=== PATIENT | female | born 1960 | race African-American/Black ===

== ENCOUNTER 2017-07-16 18:07 | Inpatient (IN) | payer MEDICAID, OTHER ==
[~2017-07-16] VITALS: Ht 154.9 cm; Wt 61.9 kg
[~2017-07-16 18:07] MED LIST: ASPI-1158 PO; ATRO2DRO LEFTEYE; DILT90TA2 PO; DOCU-138 PO; GABA-531 PO; GENT5DRO5 EACHEYE; INSASP SUBCUT; LABE100T PO; LEVAQUIN PO
[2017-07-16 19:27] LABS: BASOPHILS % 0.8 % (0.0-2.0); EOSINOPHILS % 3.2 % (0.0-5.0); HEMATOCRIT. 23.2 % (36.0-48.0); HEMOGLOBIN. 7.2 g/dL (12.0-16.0); LYMPHOCYTES % 12.5 % (20.0-50.0); MEAN CORPUSCULAR VOLUME 90.6 fL (81.0-99.0); MEAN PLATELET VOLUME 8.8 fl (7.4-10.4); MONOCYTES % 8.7 % (2.0-8.0); NEUTROPHILS % 74.8 % (40.0-76.0); PLATELET 280 x1000/uL (130-400); RED BLOOD CELL COUNT 2.56 mill/uL (4.2-5.4); RED CELL DISTRIBUTION WIDTH 17.1 % (11.6-14.6)
[2017-07-16 19:31] LABS: PROTHROMBIN TIME 10.8 sec (9.4-11.6)
[2017-07-16 19:40] LABS: CARBON DIOXIDE 25 mEq/L (21-32); CHLORIDE 89 mEq/L (98-107); TROPONIN I < 0.02 ng/mL (0.00-0.04)
[2017-07-16] MEDS ORDERED: INSULIN REGULAR (HUMULIN R) 300UNITS/3ML IV ONE (20:15)
[2017-07-16] MEDS ORDERED: ACETAMINOPHEN 325MG TABLET PO PRN (20:15)
[2017-07-16 20:47] LABS: BG BASE EXCESS -0.6 mmol/L (-2.0-2.0); BG CARBOXYHEMOGLOBIN 1.1 % (0.5-1.5); BG DEOXYHEMOGLOBIN 5.7 % (0.0-5.0); BG FRACTION INSPIRED OXYGEN 40; BG HCO3 ACT 24.1 mmol/L (22.0-26.0); BG METHEMOGLOBIN 0.3 % (0.0-1.5); BG OXYGEN SATURATION 94.2 % (92.0-98.5); BG OXYHEMOGLOBIN 92.9 % (94.0-97.0); BG PCO2 39.6 mmHg (35.0-45.0); BG PH 7.402 (7.350-7.450); BG PO2 76.3 mmHg (75.0-100.0); BG SAMPLE SITE LEFT RADIAL; BG TOTAL HEMOGLOBIN 7.8 g/dL (12.0-18.0); BG VENT MODE MASK - TRACH
[2017-07-16] MEDS ORDERED: INSULIN REGULAR (HUMULIN R) 300UNITS/3ML SUBCUT ONE (21:45)
[2017-07-16 23:45] VITALS: BP 184/91
[2017-07-16] MEDS ORDERED: ACETAMINOPHEN 650MG SUPP PR PRN (23:45)
[2017-07-16] MEDS ORDERED: DOCUSATE SODIUM 100MG CAPSULE PO PRN (23:45)
[2017-07-16] MEDS ORDERED: NA PHOS,M-B/NA PHOS,DI-BA ENEMA 118ML PR PRN (23:45)
[2017-07-16] MEDS ORDERED: HYDROCODONE/ACETAMINOPHEN 5/325MG TABLET PO PRN (23:45)
[2017-07-16] MEDS ORDERED: MAGNESIUM/ALUMINUM HYDROXIDE/SIMETHICONE 30ML UDC PO PRN (23:45)
[2017-07-16] MEDS ORDERED: IPRATROPIUM/ALBUTEROL 0.5-3(2.5)MG/3ML NEB INH PRN (23:45)
[2017-07-16] MEDS ORDERED: GUAIFENESIN 200MG/10ML SUGAR FREE UDC PO PRN (23:45)
[2017-07-16] MEDS ORDERED: MORPHINE SULFATE 2 MG/ML CPJ (NOT FOR IM USE) IV PRN (23:45)
[2017-07-16] MEDS ORDERED: ACETAMINOPHEN 650MG/20.3ML UDC GT PRN (23:45)
[2017-07-16] MEDS ORDERED: ENOXAPARIN 40MG/0.4ML SYR SUBCUT SCH (23:45)
[2017-07-17] VITALS (41 sets, daily range): BP systolic 122–196; BP diastolic 66–110
[2017-07-17] MEDS ORDERED: DEXTROSE 50% WATER 50ML SYRINGE IV PRN
[2017-07-17] MEDS: GABAPENTIN 100MG CAPSULE PO SCH ×3 (00:49→16:06)
[2017-07-17] MEDS: DOCUSATE SODIUM 100MG CAPSULE PO SCH ×3 (00:49→16:06)
[2017-07-17] MEDS: ASPIRIN 81MG EC TABLET PO SCH ×2 (00:49→09:00)
[2017-07-17] MEDS: LABETALOL HCL 100MG TABLET PO SCH ×3 (00:49→21:23)
[2017-07-17] MEDS: IPRATROPIUM/ALBUTEROL 0.5-3(2.5)MG/3ML NEB INH SCH ×4 (01:30→21:17)
[2017-07-17] MEDS: GENTAMICIN 0.3% OPHTH DROPS 5ML EACHEYE SCH ×4 (02:07→16:06)
[2017-07-17] MEDS: ATROPINE SULFATE 1% OPHTH 2ML LEFTEYE SCH ×3 (02:08→16:06)
[2017-07-17] MEDS: DILTIAZEM HCL 90MG TABLET PO SCH ×3 (06:00→21:23)
[2017-07-17] MEDS: SODIUM CHLORIDE 0.9% INJ 3ML FLUSH IVF SCH ×3 (07:10→21:23)
[2017-07-17] MEDS: BLOOD SUGAR DIAGNOSTIC STRIP TEST SCH ×4 (07:16→21:23)
[2017-07-17] MEDS: INSULIN LISPRO 100 UNITS/ML SUBCUT SCH ×4 (07:20→21:24)
[2017-07-17] MEDS: DIPHENHYDRAMINE 50MG/ML VIAL IV PRN (07:20)
[2017-07-17 07:21] LABS: BASOPHILS % 1.2 % (0.0-2.0); EOSINOPHILS % 4.2 % (0.0-5.0); HEMATOCRIT. 23.1 % (36.0-48.0); HEMOGLOBIN. 7.4 g/dL (12.0-16.0); LYMPHOCYTES % 19.6 % (20.0-50.0); MEAN CORPUSCULAR HEMOGLOBIN 27.9 pg (28.0-32.0); MEAN CORPUSCULAR VOLUME 86.9 fL (81.0-99.0); MEAN PLATELET VOLUME 9.1 fl (7.4-10.4); MONOCYTES % 10.6 % (2.0-8.0); NEUTROPHILS % 64.4 % (40.0-76.0); PLATELET 246 x1000/uL (130-400); RED BLOOD CELL COUNT 2.66 mill/uL (4.2-5.4); RED CELL DISTRIBUTION WIDTH 17.1 % (11.6-14.6)
[2017-07-17 07:39] LABS: CARBON DIOXIDE 28 mEq/L (21-32); CHLORIDE 95 mEq/L (98-107); HDL CHOLESTEROL 64 mg/dL (40-59); LDL CHOLESTEROL 117 mg/dL (5-100)
[2017-07-17] MEDS ORDERED: ENOXAPARIN 30MG/0.3ML SYR SUBCUT SCH (09:00)
[2017-07-17] MEDS: CLONIDINE 0.1MG TABLET PO PRN (17:15)
[2017-07-17] MEDS: EPOETIN ALFA 4000UNITS/ML VIAL SUBCUT SCH (21:23)
[2017-07-17] MEDS: INSULIN DETEMIR UD 100 UNITS/ML SYR SUBCUT SCH (22:14)
[2017-07-18] VITALS (19 sets, daily range): BP systolic 122–181; BP diastolic 62–103
[2017-07-18] MEDS: IPRATROPIUM/ALBUTEROL 0.5-3(2.5)MG/3ML NEB INH SCH ×4 (02:51→21:03)
[2017-07-18] MEDS: DILTIAZEM HCL 90MG TABLET PO SCH ×3 (06:21→21:57)
[2017-07-18] MEDS: BLOOD SUGAR DIAGNOSTIC STRIP TEST SCH ×4 (06:21→21:57)
[2017-07-18] MEDS: SODIUM CHLORIDE 0.9% INJ 3ML FLUSH IVF SCH ×3 (06:21→21:57)
[2017-07-18 07:06] LABS: BASOPHILS % 0.9 % (0.0-2.0); EOSINOPHILS % 4.3 % (0.0-5.0); HEMATOCRIT. 27.5 % (36.0-48.0); LYMPHOCYTES % 19.2 % (20.0-50.0); MEAN CORPUSCULAR HEMOGLOBIN 27.9 pg (28.0-32.0); MEAN CORPUSCULAR VOLUME 85.5 fL (81.0-99.0); MEAN PLATELET VOLUME 8.3 fl (7.4-10.4); NEUTROPHILS % 65.6 % (40.0-76.0); PLATELET 274 x1000/uL (130-400); RED BLOOD CELL COUNT 3.21 mill/uL (4.2-5.4); RED CELL DISTRIBUTION WIDTH 18.1 % (11.6-14.6)
[2017-07-18 07:31] LABS: PHOSPHORUS 4.1 mg/dL (2.5-4.9)
[2017-07-18] MEDS: INSULIN LISPRO 100 UNITS/ML SUBCUT SCH ×4 (07:55→21:58)
[2017-07-18] MEDS: ASPIRIN 81MG EC TABLET PO SCH (08:37)
[2017-07-18] MEDS: DOCUSATE SODIUM 100MG CAPSULE PO SCH ×2 (08:37→17:47)
[2017-07-18] MEDS: GABAPENTIN 100MG CAPSULE PO SCH ×2 (08:37→17:47)
[2017-07-18] MEDS: ATROPINE SULFATE 1% OPHTH 2ML LEFTEYE SCH ×2 (08:37→17:47)
[2017-07-18] MEDS: GENTAMICIN 0.3% OPHTH DROPS 5ML EACHEYE SCH ×3 (08:37→17:48)
[2017-07-18] MEDS: LABETALOL HCL 100MG TABLET PO SCH ×2 (08:38→21:57)
[2017-07-18] MEDS: INSULIN DETEMIR UD 100 UNITS/ML SYR SUBCUT SCH ×2 (10:00→21:59)
[2017-07-18 10:37] LABS: BG BASE EXCESS -0.4 mmol/L (-2.0-2.0); BG CARBOXYHEMOGLOBIN 0.7 % (0.5-1.5); BG DEOXYHEMOGLOBIN 6.1 % (0.0-5.0); BG HCO3 ACT 24.3 mmol/L (22.0-26.0); BG METHEMOGLOBIN 0.1 % (0.0-1.5); BG OXYGEN SATURATION 93.9 % (92.0-98.5); BG OXYHEMOGLOBIN 93.1 % (94.0-97.0); BG PCO2 39.9 mmHg (35.0-45.0); BG PH 7.403 (7.350-7.450); BG PO2 73.9 mmHg (75.0-100.0); BG SAMPLE SITE RIGHT RADIAL; BG VENT MODE MASK - VENTI
[2017-07-18] MEDS: LOSARTAN POTASSIUM 50 MG TABLET PO SCH (11:16)
[2017-07-18] MEDS: BUDESONIDE 0.5MG/2ML NEB HHN SCH ×2 (14:59→21:04)
[2017-07-18] MEDS: ONDANSETRON HCL 4MG/2ML VIAL IV PRN ×2 (16:45→21:58)
[2017-07-18] MEDS ORDERED: MORPHINE SULFATE 4 MG/ML CPJ (NOT FOR IM USE) IV PRN (18:15)
[2017-07-18] MEDS: FAMOTIDINE 20MG/2ML VIAL IV SCH (21:57)
[2017-07-18] MEDS: ZOLPIDEM TARTRATE 5MG TABLET PO PRN (23:15)
[2017-07-18] MEDS: METOCLOPRAMIDE HCL 10MG/2ML VIAL IV SCH (23:16)
[2017-07-19] VITALS (22 sets, daily range): BP systolic 121–199; BP diastolic 71–102
[2017-07-19] MEDS: IPRATROPIUM/ALBUTEROL 0.5-3(2.5)MG/3ML NEB INH SCH ×4 (01:14→21:09)
[2017-07-19] MEDS: METOCLOPRAMIDE HCL 10MG/2ML VIAL IV SCH ×4 (05:52→23:42)
[2017-07-19] MEDS: SODIUM CHLORIDE 0.9% INJ 3ML FLUSH IVF SCH ×3 (05:53→22:19)
[2017-07-19] MEDS: DILTIAZEM HCL 90MG TABLET PO SCH ×3 (06:01→22:08)
[2017-07-19] MEDS: BLOOD SUGAR DIAGNOSTIC STRIP TEST SCH ×4 (06:01→20:41)
[2017-07-19] MEDS: INSULIN LISPRO 100 UNITS/ML SUBCUT SCH ×4 (06:52→20:45)
[2017-07-19 07:31] LABS: EOSINOPHILS % 4.3 % (0.0-5.0); HEMATOCRIT. 26.2 % (36.0-48.0); HEMOGLOBIN. 8.5 g/dL (12.0-16.0); MEAN CORPUSCULAR HEMOGLOBIN 27.7 pg (28.0-32.0); MEAN CORPUSCULAR VOLUME 85.8 fL (81.0-99.0); MEAN PLATELET VOLUME 8.4 fl (7.4-10.4); MONOCYTES % 10.4 % (2.0-8.0); NEUTROPHILS % 63.3 % (40.0-76.0); PLATELET 277 x1000/uL (130-400); RED BLOOD CELL COUNT 3.06 mill/uL (4.2-5.4)
[2017-07-19] MEDS: BUDESONIDE 0.5MG/2ML NEB HHN SCH ×2 (08:03→21:09)
[2017-07-19 08:11] LABS: PHOSPHORUS 4.2 mg/dL (2.5-4.9)
[2017-07-19] MEDS: FAMOTIDINE 20MG/2ML VIAL IV SCH (08:30)
[2017-07-19] MEDS: ONDANSETRON HCL 4MG/2ML VIAL IV PRN (08:30)
[2017-07-19] MEDS: LOSARTAN POTASSIUM 50 MG TABLET PO SCH (09:37)
[2017-07-19] MEDS: ASPIRIN 81MG EC TABLET PO SCH (09:37)
[2017-07-19] MEDS: DOCUSATE SODIUM 100MG CAPSULE PO SCH ×2 (09:37→16:43)
[2017-07-19] MEDS: GABAPENTIN 100MG CAPSULE PO SCH ×2 (09:37→16:43)
[2017-07-19] MEDS: LABETALOL HCL 100MG TABLET PO SCH ×2 (09:38→20:41)
[2017-07-19] MEDS: ATROPINE SULFATE 1% OPHTH 2ML LEFTEYE SCH ×2 (09:39→16:44)
[2017-07-19] MEDS: GENTAMICIN 0.3% OPHTH DROPS 5ML EACHEYE SCH ×3 (09:40→16:57)
[2017-07-19] MEDS: INSULIN DETEMIR UD 100 UNITS/ML SYR SUBCUT SCH ×2 (11:01→22:18)
[2017-07-19] MEDS: DIPHENHYDRAMINE 50MG/ML VIAL IV PRN (12:07)
[2017-07-19] MEDS ORDERED: METOCLOPRAMIDE HCL 10MG/2ML VIAL IV SCH (18:00)
[2017-07-19] MEDS: EPOETIN ALFA 4000UNITS/ML VIAL SUBCUT SCH (20:46)
[2017-07-19] MEDS: ZOLPIDEM TARTRATE 5MG TABLET PO PRN (22:50)
[2017-07-20] VITALS (15 sets, daily range): BP systolic 122–186; BP diastolic 65–102
[2017-07-20] MEDS: CLONIDINE 0.1MG TABLET PO PRN ×2 (00:25→15:35)
[2017-07-20] MEDS: IPRATROPIUM/ALBUTEROL 0.5-3(2.5)MG/3ML NEB INH SCH ×4 (00:47→20:53)
[2017-07-20] MEDS: METOCLOPRAMIDE HCL 10MG/2ML VIAL IV SCH ×4 (05:47→23:32)
[2017-07-20] MEDS: SODIUM CHLORIDE 0.9% INJ 3ML FLUSH IVF SCH ×3 (05:47→21:46)
[2017-07-20] MEDS: DILTIAZEM HCL 90MG TABLET PO SCH ×3 (05:48→21:33)
[2017-07-20] MEDS: BLOOD SUGAR DIAGNOSTIC STRIP TEST SCH ×4 (05:50→21:31)
[2017-07-20 07:01] LABS: BASOPHILS % 1.2 % (0.0-2.0); HEMATOCRIT. 28.2 % (36.0-48.0); HEMOGLOBIN. 9.1 g/dL (12.0-16.0); LYMPHOCYTES % 14.5 % (20.0-50.0); MEAN CORPUSCULAR HEMOGLOBIN 27.7 pg (28.0-32.0); MEAN CORPUSCULAR VOLUME 85.9 fL (81.0-99.0); NEUTROPHILS % 72.3 % (40.0-76.0); RED BLOOD CELL COUNT 3.29 mill/uL (4.2-5.4); RED CELL DISTRIBUTION WIDTH 17.8 % (11.6-14.6)
[2017-07-20 08:04] LABS: PHOSPHORUS 4.1 mg/dL (2.5-4.9)
[2017-07-20] MEDS: GABAPENTIN 100MG CAPSULE PO SCH ×2 (08:27→17:05)
[2017-07-20] MEDS: LABETALOL HCL 100MG TABLET PO SCH ×2 (08:27→21:32)
[2017-07-20] MEDS: INSULIN LISPRO 100 UNITS/ML SUBCUT SCH ×4 (08:27→21:00)
[2017-07-20] MEDS: LOSARTAN POTASSIUM 50 MG TABLET PO SCH (08:28)
[2017-07-20] MEDS: FAMOTIDINE 20MG/2ML VIAL IV SCH (08:28)
[2017-07-20] MEDS: ATROPINE SULFATE 1% OPHTH 2ML LEFTEYE SCH ×2 (08:28→17:06)
[2017-07-20] MEDS: GENTAMICIN 0.3% OPHTH DROPS 5ML EACHEYE SCH ×3 (08:28→17:06)
[2017-07-20] MEDS: DOCUSATE SODIUM 100MG CAPSULE PO SCH ×2 (08:28→17:06)
[2017-07-20] MEDS: ASPIRIN 81MG EC TABLET PO SCH (08:28)
[2017-07-20] MEDS ORDERED: LEVVL SUBCUT (08:38)
[2017-07-20] MEDS ORDERED: LOSA50TA3 PO (08:38)
[2017-07-20] MEDS: BUDESONIDE 0.5MG/2ML NEB HHN SCH ×2 (09:15→20:53)
[2017-07-20] MEDS: INSULIN DETEMIR UD 100 UNITS/ML SYR SUBCUT SCH ×2 (10:35→21:42)
[2017-07-20] MEDS ORDERED: CLONIDINE 0.1MG TABLET PO SCH (10:45)
[2017-07-20] MEDS: ONDANSETRON HCL 4MG/2ML VIAL IV PRN (17:14)
[2017-07-21] VITALS (7 sets, daily range): BP systolic 131–170; BP diastolic 67–99
[2017-07-21] MEDS: IPRATROPIUM/ALBUTEROL 0.5-3(2.5)MG/3ML NEB INH SCH ×2 (01:07→09:16)
[2017-07-21] MEDS: CLONIDINE 0.1MG TABLET PO PRN (02:28)
[2017-07-21] MEDS: METOCLOPRAMIDE HCL 10MG/2ML VIAL IV SCH ×2 (05:27→11:04)
[2017-07-21] MEDS: SODIUM CHLORIDE 0.9% INJ 3ML FLUSH IVF SCH (05:28)
[2017-07-21] MEDS: DILTIAZEM HCL 90MG TABLET PO SCH (05:28)
[2017-07-21] MEDS: BLOOD SUGAR DIAGNOSTIC STRIP TEST SCH ×2 (06:30→11:04)
[2017-07-21] MEDS: DOCUSATE SODIUM 100MG CAPSULE PO SCH (08:22)
[2017-07-21] MEDS: ASPIRIN 81MG EC TABLET PO SCH (08:22)
[2017-07-21] MEDS: FAMOTIDINE 20MG/2ML VIAL IV SCH (08:22)
[2017-07-21] MEDS: GABAPENTIN 100MG CAPSULE PO SCH (08:22)
[2017-07-21] MEDS: GENTAMICIN 0.3% OPHTH DROPS 5ML EACHEYE SCH (08:23)
[2017-07-21] MEDS: LABETALOL HCL 100MG TABLET PO SCH (08:23)
[2017-07-21] MEDS: ATROPINE SULFATE 1% OPHTH 2ML LEFTEYE SCH (08:23)
[2017-07-21] MEDS: INSULIN LISPRO 100 UNITS/ML SUBCUT SCH ×2 (08:27→11:57)
[2017-07-21] MEDS: LOSARTAN POTASSIUM 50 MG TABLET PO SCH (08:28)
[2017-07-21] MEDS: BUDESONIDE 0.5MG/2ML NEB HHN SCH (09:16)
[2017-07-21] MEDS: INSULIN DETEMIR UD 100 UNITS/ML SYR SUBCUT SCH (11:04)
[2017-07-22] MEDS ORDERED: EPOETIN ALFA 4000UNITS/ML VIAL SUBCUT SCH (21:00)
== END 2017-07-21 13:25 | disposition home or self-care (01) | DRG 133 ==
LOC: ER 18:07 → 3WST 20:17 → ENRESERV 22:26
PROVIDERS: ADMIT Family Medicine; ATTEND Family Medicine
PROC: 30233N1 Transfusion of Nonautologous Red Blood Cells into Peripheral Vein, Percutaneous Approach (ICD-10-PCS; principal; 2017-07-17)
PROC: 5A1D60Z (ICD-10-PCS; 2017-07-17)
DX: J96.20 Acute and chronic respiratory failure, unspecified whether with hypoxia or hypercapnia (principal); I13.2 Hypertensive heart and chronic kidney disease with heart failure and with stage 5 chronic kidney disease, or end stage renal disease; J84.9 Interstitial pulmonary disease, unspecified; Z93.0 Tracheostomy status; N18.6 End stage renal disease; I27.2 Other secondary pulmonary hypertension; Z99.81 Dependence on supplemental oxygen; E11.22 Type 2 diabetes mellitus with diabetic chronic kidney disease; E11.40 Type 2 diabetes mellitus with diabetic neuropathy, unspecified; Z99.2 Dependence on renal dialysis; E11.65 Type 2 diabetes mellitus with hyperglycemia; E11.319 Type 2 diabetes mellitus with unspecified diabetic retinopathy without macular edema; J44.9 Chronic obstructive pulmonary disease, unspecified; D64.9 Anemia, unspecified; H54.42 Blindness, left eye, normal vision right eye; H40.9 Unspecified glaucoma; E87.1 Hypo-osmolality and hyponatremia; I50.9 Heart failure, unspecified; Z83.3 Family history of diabetes mellitus; Z87.891 Personal history of nicotine dependence
CPT/HCPCS: 36415; 36600; 71010; 76604; 80048; 80053; 80061; 82270; 82375; 82728; 82805; 82962; 83540; 83550; 83735; 83880; 84100; 84484; 85025; 85610; 86850; 86900; 86920; 87040; 87070; 93005; 93306; 94640; 96372; 96374; 97162; 97530; 99291; J0885; J1200; J1650; J1815; J2270; J2405; J2765; J3490; J7030; J7040; J7620; J7626; P9016